=== PATIENT | male | born 1935 | race American Indian/Alaskan Native ===

== ENCOUNTER 2017-07-21 06:41 | Day surgery (SDC) | payer MEDICARE ==
[~2017-07-21 06:41] MED LIST: TETRACAINE 0.5% OS PRN
--- NOTE | 2017-07-21 08:54 | Anesthesia Day of Surgery ---
Anesthesia Day of Surgery - Day of Surgery Patient Examined: Yes Patient H&P Reviewed: Yes Patient is NPO: Yes
--- NOTE | 2017-07-21 08:55 | Anesthesia Consultation ---
Anesthesia Consult and Med Hx Date of service: 07/21/17 - Airway Anesthetic Teeth Evaluation: Good ROM Head & Neck: Adequate Mental/Hyoid Distance: Adequate Mallampati Class: Class II Intubation Access Assessment: Good - Pulmonary Exam CTA: Yes - Cardiac Exam Cardiac Exam: RRR - Pulmonary Hx Smoking: Yes (QUIT OVER 30 YEARS AGO) Hx Sleep Apnea: Yes - Cardiovascular System Hx Hypertension: Yes (OVER 10 YEARS) - Central Nervous System Hx Back Pain: Yes Hx Psychiatric Problems: No - Other Systems Hx Alcohol Use: No Hx Substance Use: No Hx Cancer: No
[2017-07-21] MEDS: VIGAMOX OS SCH ×3 (09:07→09:21)
[2017-07-21] MEDS: AK-Dilate OS SCH ×3 (09:08→09:22)
[2017-07-21] MEDS: MYDRIACYL OS SCH ×3 (09:08→09:22)
[2017-07-21] MEDS ORDERED: SUBLIMAZE ONE (09:31)
[2017-07-21] MEDS ORDERED: VERSED ONE (09:31)
[2017-07-21] MEDS ORDERED: DIAMOX PO NR (10:22)
--- NOTE | 2017-07-21 10:23 | Operative Report ---
Operative Report Operative Report: PATIENT'S NAME: DATE OF : DATE OF SURGERY: 07/21/2017 PREOPERATIVE DIAGNOSIS: Cataract left eye POSTOPERATIVE DIAGNOSIS: Same OPERATIVE PROCEDURE: Phacoemulsification with intraocular lens implantation, left eye SURGEON: Tami Brambila M.D. PHYSICS INSTRUCTOR SURGEON: Jackie Lens: AO60 23.5 D ANESTHESIA: Monitored anesthesia care in combination with topical and intracameral anesthesia because of the established specific risk of reflux, arrhythmias, or anxiety attacks associated with ocular manipulation, as well as the difficulty of the firearms instructor to manage such potentially catastrophic events while simultaneously attempting to complete the surgical procedure and was deemed necessary for the patient's safety to have an Psychiatric Lpn present during the procedure whenever possible. An Psychiatric Lpn was utilized to regulate the intravenous sedation of the patient so the patient was cooperative yet not asleep in order for the patient to successfully maintain fixation of the eye on the operating light of the microscope. COMPLICATIONS: o surgical complications No blood loss. ALLERGIES: Iodine PROGNOSIS: Excellent INDICATIONS FOR SURGERY: The patient is undergoing surgery in the hopes of eliminating or improving these visual difficulties. PROCEDURE: After arriving at the surgery center, the patient was given topical anesthetic and dilating drops, as noted in the record. The patient was then taken into the operating room and given more anesthetic drops. The eyelids , lashes, and lid margins were scrubbed with Betadine solution, and the patient was draped. The Nurse Psychiatric Lpn administered IV sedation and monitored the patient during the procedure. The eye was then fixated with a 0.12, and a stab incision was made in the peripheral clear cornea into the anterior chamber. This was made on my left side. Viscoelastic was next used to fill the anterior chamber. The eye was once again fixated with the 0.12 forceps and a keratome was used make an incision in clear cornea peripherally on my right hand side temporally. The capsule forceps were used to open the central anterior capsule and then make a continuous round capsulotomy. Hydrodissection was carried out utilizing a cannula and balanced salt solution to delineate the cortical material from the capsule and the nucleus from the cortical material. The phaco tip was introduced into the eye and used to remove the anterior cortical material in the area of the capsulotomy. Then the phaco tip was buried into the nucleus, and a chopping instrument was introduced into the eye and used to provide countertraction in the nucleus between this instrument and the phaco tip fracturing the nucleus. This procedure was repeated multiple times, providing multiple small segments of the lens, and then the phaco tip was used to remove each of these segments. An I/A tip was then used to remove the remaining cortex. The anterior chamber was refilled with viscoelastic. An one-piece, acrylic intraocular lens was then placed into an inserting cartridge. The tip of the inserting cartridge was introduced into the keratome incision and into the anterior chamber. The implant was gently advanced through the cartridge and into the eye, where it unfolded, and both haptics were placed in the capsular bag, where it centered nicely and appeared to be well fixated. After placement of the intraocular lens, the I~and~A handpiece was placed back into the eye and used to remove the viscoelastic, including viscoelastic that was behind the optic of the intraocular lens. The anterior chamber was then filled with balanced salt solution, and hydration of the wound was used to cause swelling of the wound and more appropriate watertight closure. When the wound was found to be firm, the patient was asked to comment on how bright the light was. If there was no light perception at all or if the light was substantially dimmer than during the rest of the surgery, the amount of fluid in the eye was decompressed to lower the intraocular pressure until the patient could see the bright light again. This was done to avoid any damage or decreased blood flow to the optic nerve. MEDICATIONS APPLIED AT END OF SURGERY: One drop of Pred Forte and Vigamox The patient was given a shield to wear at night and was instructed not to rub or push on the eye. DISCHARGE SUMMARY: The patient was released in stable condition. The patient and those with the patient were given a written sheet of postoperative instructions and counseling on any abnormal laboratory studies. The patient is to see us tomorrow for follow-up in the office and is to call immediately for any difficulties. Tami Brambila M.D. Date
--- NOTE | 2017-07-21 10:24 | Short Stay Summary ---
Short Stay Documentation Date of service: 07/21/17 - History H&P: obtained from office - Allergies and Medications Current Medications: Allergies Iodine and Iodide Containing Produc Allergy (Verified 07/14/17 17:11) DRY HEAVES Home Medications Medication Instructions Recorded Confirmed Last Taken Type Advair 250-50 Diskus 1 puff INHALATION 07/21/17 07/20/17 10:00 History Aspirin BABY CHEW TAB 81 mg PO DAILY 07/21/17 07/21/17 07/20/17 10:00 History AtorvaSTATin [Lipitor] 80 mg PO DAILY 07/21/17 07/21/17 07/20/17 10:00 History Dofetilide [Tikosyn] 500 mg PO BID 07/21/17 07/21/17 07/20/17 23:00 History Exenatide Microspheres [Bydureon] 4 mg IM WE 07/21/17 07/21/17 07/17/17 10:00 History Ferrous Gluconate 326 mg PO DAILY 07/21/17 07/21/17 07/20/17 10:00 History Flomax 0.4 mg PO DAILY 07/21/17 07/21/17 07/20/17 10:00 History Latanoprost 0.005% 1 drop INTRAOCULA DAILY 07/21/17 07/21/17 07/20/17 10:00 History Metoprolol SUCCINATE ER TAB 50 mg PO DAILY 07/21/17 07/21/17 07/20/17 10:00 History Omeprazole 40 mg PO DAILY 07/21/17 07/21/17 07/20/17 21:00 History Pantoprazole 40 mg PO DAILY 07/21/17 07/21/17 07/20/17 10:00 History Potassium Chloride 20 meq PO DAILY 07/21/17 07/21/17 07/20/17 10:00 History Spiriva 1 puff INHALATION DAILY 07/21/17 07/21/17 07/20/17 10:00 History Vitamin D2 50,000 unit PO 1XW 07/21/17 07/21/17 07/15/17 10:00 History Zofran Odt 4 mg PO PRN 07/21/17 07/21/17 Unknown History Active Medications Acetazolamide (Diamox) 500 mg PO ONCE ONE Stop: 07/21/17 10:23 Moxifloxacin HCl (Vigamox) 1 drops OS Q5MIN RAVEN Stop: 07/23/17 06:01 Last Admin: 07/21/17 09:21 Dose: 1 drops Phenylephrine HCl (Ak-Dilate) 1 drops OS Q5MIN RAVEN Stop: 07/23/17 06:01 Last Admin: 07/21/17 09:22 Dose: 1 drops Prednisolone Acetate (Pred Forte 1%) 1 drops OS QID RAVEN Tetracaine HCl (Tetracaine 0.5%) 1 drops OS Q5M PRN PRN Reason: Analgesia Last Admin: 07/21/17 09:07 Dose: 1 drops Tropicamide (Mydriacyl) 1 drops OS Q5MIN RAVEN Stop: 07/23/17 06:01 Last Admin: 07/21/17 09:22 Dose: 1 drops - Brief post op/procedure progress note Date of procedure: 07/21/17 Pre-op diagnosis: left cataract Post-op diagnosis: same Procedure: Phacoemulsification with intraocular lens insertion left eye Anesthesia: MAC Surgeon: ADRIANA ODOM Estimated blood loss: none Pathology: none Condition: stable - Disposition Condition at discharge: Good Disposition: DC-01 TO HOME OR SELFCARE - Discharge Diagnoses (1) Cataract Status: Acute Qualifiers: Cataract type: age-related Age-related cataract type: nuclear Laterality : left Qualified Code(s): H25.12 - Age-related nuclear cataract, left eye Short Stay Discharge Plan Follow up with: LAINE SERRA MD [Primary Care Provider] - 7 Days
--- NOTE | 2017-07-21 10:40 | Post Anesthesia Evaluation ---
- Post Anesthesia Evaluation Patient Participated: Yes Airway Patent: Yes Stable Respiratory Function: Yes Nausea/Vomiting: No Temp > 96.8F: Yes Pain Manageable: Yes Adequeate Hydration: Yes Anesthesia Complications: No
[2017-07-21] MEDS ORDERED: PRED FORTE 1% OS SCH (11:00)
[2017-07-21 18:21] VITALS: BP 133/80
== END 2017-07-21 11:40 | disposition home or self-care (01) ==
LOC: OR 06:41
DX: E11.36 Type 2 diabetes mellitus with diabetic cataract (principal); I10 Essential (primary) hypertension; I48.91 Unspecified atrial fibrillation; I25.10 Atherosclerotic heart disease of native coronary artery without angina pectoris; J44.9 Chronic obstructive pulmonary disease, unspecified; Z91.048 Other nonmedicinal substance allergy status; Z87.891 Personal history of nicotine dependence
CPT/HCPCS: 66984; 82962; J2250; J3010; V2632

== ENCOUNTER 2017-08-04 05:46 | Day surgery (SDC) | payer MEDICARE ==
[2017-08-04] MEDS ORDERED: TETRACAINE 0.5% OD PRN (06:00)
[2017-08-04] MEDS ORDERED: NACL BACTERIOSTATIC INFILTRATI ONE (06:17)
[2017-08-04] MEDS: AK-Dilate OD SCH ×3 (06:36→07:03)
[2017-08-04] MEDS: VIGAMOX OD SCH ×3 (06:37→07:04)
[2017-08-04] MEDS: MYDRIACYL OD SCH ×3 (06:37→07:03)
[2017-08-04] MEDS ORDERED: ZOFRAN IV PRN (07:15)
[2017-08-04] MEDS ORDERED: DILAUDID IV PRN (07:15)
[2017-08-04] MEDS ORDERED: NARCAN 0.4 MG/1 ML IV PRN (07:15)
[2017-08-04] MEDS ORDERED: DEMEROL IV PRN (07:15)
--- NOTE | 2017-08-04 07:15 | Anesthesia Day of Surgery ---
Anesthesia Day of Surgery - Day of Surgery Patient Examined: Yes Patient H&P Reviewed: Yes Patient is NPO: Yes
--- NOTE | 2017-08-04 07:15 | Anesthesia Consultation ---
Anesthesia Consult and Med Hx Date of service: 08/04/17 - Airway Anesthetic Teeth Evaluation: Poor, Chipped ROM Head & Neck: Adequate Mental/Hyoid Distance: Adequate Mallampati Class: Class II Intubation Access Assessment: Good - Pulmonary Exam CTA: Yes - Cardiac Exam Cardiac Exam: RRR - Pre-Operative Health Status ASA Pre-Surgery Classification: ASA3 Proposed Anesthetic Plan: MAC - Pulmonary Hx Smoking: Yes (QUIT 30 YEARS AGO) COPD: Yes (no oxygen dependent) Hx Sleep Apnea: Yes - Cardiovascular System Hx Hypertension: Yes (X 10 YEARS) - Other Systems Hx Cancer: No
[2017-08-04] MEDS ORDERED: VERSED ONE (07:38)
[2017-08-04] MEDS ORDERED: SUBLIMAZE ONE (07:39)
[2017-08-04] MEDS ORDERED: PRED FORTE 1% OS SCH (08:01)
[2017-08-04] MEDS ORDERED: PRED FORTE 1% ONE (08:01)
[2017-08-04] MEDS ORDERED: DIAMOX PO NR (08:34)
--- NOTE | 2017-08-04 08:49 | Operative Report ---
Operative Report Operative Report: PATIENT'S NAME: DATE OF : DATE OF SURGERY: PREOPERATIVE DIAGNOSIS: Cataract right eye POSTOPERATIVE DIAGNOSIS: Same OPERATIVE PROCEDURE: Phacoemulsification with intraocular lens implantation, right eye SURGEON: Tami Brambila M.D. LABORER [employer] SURGEON: Jackie Lens: AO60 21.0 D ANESTHESIA: Monitored anesthesia care in combination with topical and intracameral anesthesia because of the established specific risk of reflux, arrhythmias, or anxiety attacks associated with ocular manipulation, as well as the difficulty of the cutlery grinder to manage such potentially catastrophic events while simultaneously attempting to complete the surgical procedure and was deemed necessary for the patient's safety to have an Shell Worker present during the procedure whenever possible. An Shell Worker was utilized to regulate the intravenous sedation of the patient so the patient was cooperative yet not asleep in order for the patient to successfully maintain fixation of the eye on the operating light of the microscope. COMPLICATIONS: o surgical complications No blood loss. ALLERGIES: Iodine PROGNOSIS: Excellent INDICATIONS FOR SURGERY: The patient is undergoing surgery in the hopes of eliminating or improving these visual difficulties. PROCEDURE: After arriving at the surgery center, the patient was given topical anesthetic and dilating drops, as noted in the record. The patient was then taken into the operating room and given more anesthetic drops. The eyelids , lashes, and lid margins were scrubbed with Betadine solution, and the patient was draped. The Nurse Shell Worker administered IV sedation and monitored the patient during the procedure. The eye was then fixated with a 0.12, and a stab incision was made in the peripheral clear cornea into the anterior chamber. This was made on my left side. Viscoelastic was next used to fill the anterior chamber. The eye was once again fixated with the 0.12 forceps and a keratome was used make an incision in clear cornea peripherally on my right hand side temporally. The capsule forceps were used to open the central anterior capsule and then make a continuous round capsulotomy. Hydrodissection was carried out utilizing a cannula and balanced salt solution to delineate the cortical material from the capsule and the nucleus from the cortical material. The phaco tip was introduced into the eye and used to remove the anterior cortical material in the area of the capsulotomy. Then the phaco tip was buried into the nucleus, and a chopping instrument was introduced into the eye and used to provide countertraction in the nucleus between this instrument and the phaco tip fracturing the nucleus. This procedure was repeated multiple times, providing multiple small segments of the lens, and then the phaco tip was used to remove each of these segments. An I/A tip was then used to remove the remaining cortex. The anterior chamber was refilled with viscoelastic. An one-piece, acrylic intraocular lens was then placed into an inserting cartridge. The tip of the inserting cartridge was introduced into the keratome incision and into the anterior chamber. The implant was gently advanced through the cartridge and into the eye, where it unfolded, and both haptics were placed in the capsular bag, where it centered nicely and appeared to be well fixated. After placement of the intraocular lens, the I~and~A handpiece was placed back into the eye and used to remove the viscoelastic, including viscoelastic that was behind the optic of the intraocular lens. The anterior chamber was then filled with balanced salt solution, and hydration of the wound was used to cause swelling of the wound and more appropriate watertight closure. When the wound was found to be firm, the patient was asked to comment on how bright the light was. If there was no light perception at all or if the light was substantially dimmer than during the rest of the surgery, the amount of fluid in the eye was decompressed to lower the intraocular pressure until the patient could see the bright light again. This was done to avoid any damage or decreased blood flow to the optic nerve. MEDICATIONS APPLIED AT END OF SURGERY: One drop of Pred Forte and Vigamox The patient was given a shield to wear at night and was instructed not to rub or push on the eye. DISCHARGE SUMMARY: The patient was released in stable condition. The patient and those with the patient were given a written sheet of postoperative instructions and counseling on any abnormal laboratory studies. The patient is to see us tomorrow for follow-up in the office and is to call immediately for any difficulties. Tami Brambila M.D. Date
--- NOTE | 2017-08-04 08:50 | Short Stay Summary ---
Short Stay Documentation Date of service: 08/04/17 - History H&P: obtained from office - Allergies and Medications Current Medications: Allergies Iodine and Iodide Containing Produc Allergy (Verified 08/02/17 12:58) DRY HEAVES Home Medications Medication Instructions Recorded Confirmed Last Taken Type Advair 250-50 Diskus 1 puff INHALATION DAILY 07/21/17 08/02/17 08/03/17 History Aspirin BABY CHEW TAB 81 mg PO DAILY 07/21/17 08/02/17 08/03/17 History AtorvaSTATin [Lipitor] 80 mg PO DAILY 07/21/17 08/02/17 08/03/17 History Dofetilide [Tikosyn] 500 mg PO BID 07/21/17 08/02/17 08/03/17 History Exenatide Microspheres [Bydureon] 4 mg IM WE 07/21/17 08/04/17 07/31/17 History Ferrous Gluconate 326 mg PO DAILY 07/21/17 08/02/17 08/03/17 History Flomax 0.4 mg PO DAILY 07/21/17 08/02/17 08/03/17 History Latanoprost 0.005% 1 drop INTRAOCULA DAILY 07/21/17 08/02/17 08/03/17 History Metoprolol SUCCINATE ER TAB 50 mg PO DAILY 07/21/17 08/02/17 08/03/17 History Omeprazole 40 mg PO DAILY 07/21/17 08/02/17 08/03/17 History Pantoprazole 40 mg PO DAILY 07/21/17 08/02/17 08/03/17 History Potassium Chloride 20 meq PO DAILY 07/21/17 08/02/17 08/03/17 History Spiriva 1 puff INHALATION DAILY 07/21/17 08/02/17 08/03/17 History Vitamin D2 50,000 unit PO 1XW 07/21/17 08/02/17 08/03/17 History Zofran Odt 4 mg PO PRN 07/21/17 08/02/17 08/03/17 History Active Medications Acetazolamide (Diamox) 500 mg PO ONCE NR Stop: 08/04/17 11:00 Hydromorphone HCl (Dilaudid) 0.25 mg IV Q10MIN PRN PRN Reason: Pain, Moderate (4-6) Stop: 08/04/17 13:00 Meperidine HCl (Demerol) 25 mg IV ONCE PRN PRN Reason: Shivering Stop: 08/04/17 12:00 Moxifloxacin HCl (Vigamox) 1 drops OD Q5MIN RAVEN Stop: 08/04/17 18:00 Last Admin: 08/04/17 07:04 Dose: 1 drops Naloxone HCl (Narcan 0.4 Mg/1 Ml) 0.1 mg IV Q2MIN PRN PRN Reason: Res Rate </= 8 or 02 SAT < 92% Stop: 08/04/17 13:00 Ondansetron HCl (Zofran) 4 mg IV ONCE PRN PRN Reason: Nausea And Vomiting Stop: 08/04/17 12:00 Phenylephrine HCl (Ak-Dilate) 1 drops OD Q5MIN RAVEN Stop: 08/04/17 18:00 Last Admin: 08/04/17 07:03 Dose: 1 drops Prednisolone Acetate (Pred Forte 1%) 1 drops OS QID RAVEN Stop: 08/04/17 23:59 Last Admin: 08/04/17 08:44 Dose: 1 drops Tetracaine HCl (Tetracaine 0.5%) 1 drops OD Q5M PRN PRN Reason: Analgesia Stop: 08/04/17 18:00 Last Admin: 08/04/17 06:35 Dose: 1 drops Tropicamide (Mydriacyl) 1 drops OD Q5MIN RAVEN Stop: 08/04/17 18:00 Last Admin: 08/04/17 07:03 Dose: 1 drops - Brief post op/procedure progress note Date of procedure: 08/04/17 Pre-op diagnosis: right cataract Post-op diagnosis: same Procedure: Phacoemulsification with intraocular lens insertion right eye Anesthesia: MAC, local Surgeon: ADRIANA ODOM Estimated blood loss: none Pathology: none Condition: stable - Disposition Condition at discharge: Good Disposition: DC-01 TO HOME OR SELFCARE - Discharge Diagnoses (1) Cataract Status: Acute Qualifiers: Cataract type: age-related Age-related cataract type: nuclear Laterality : right Qualified Code(s): H25.11 - Age-related nuclear cataract, right eye Short Stay Discharge Plan Additional Instructions: FOLLOW SURGEON INSTRUCTION SHEETS. Follow up with: LAINE SERRA MD [Primary Care Provider] - 7 Days Forms: Outpatient Surgery DC Inst.
[2017-08-04 18:20] VITALS: BP 126/69
== END 2017-08-04 09:10 | disposition home or self-care (01) ==
LOC: OR 05:46
DX: E11.36 Type 2 diabetes mellitus with diabetic cataract (principal); J44.9 Chronic obstructive pulmonary disease, unspecified; I10 Essential (primary) hypertension; I48.91 Unspecified atrial fibrillation; E11.9 Type 2 diabetes mellitus without complications; Z79.899 Other long term (current) drug therapy; Z87.891 Personal history of nicotine dependence
CPT/HCPCS: 66984; 82962; J2250; J3010; V2632